=== PATIENT | male | born 1995 | race Caucasian/White ===

== ENCOUNTER 2017-01-23 17:40 | Emergency (ER) | payer BC ==
[~2017-01-23 17:40] MED LIST: DICL75 PO; TYLE3 PO
[2017-01-23] MEDS ORDERED: IOHEXOL 350 MG/ML 10 ML VIAL (for RAD DIAG) IVCONTRAST ONE (17:41)
[2017-01-23 17:53] VITALS: BP 128/64; PULSE 60; RESP 22; TEMP 98; O2SAT 100
[2017-01-23] MEDS ORDERED: LACTATED RINGER'S 1000 ML INJ 1,000 ML IV SCH (17:54)
[2017-01-23 17:58] VITALS: O2SAT 98
[2017-01-23] MEDS ORDERED: SODIUM CHLORIDE 0.9% FLUSH 10 ML FLUSH IVF PRN (18:00)
[2017-01-23] MEDS ORDERED: MORPHINE SULFATE 4 MG/ML INJ IV PUSH ONE ×3 (18:00→19:45)
[2017-01-23] MEDS ORDERED: ONDANSETRON HCL 4 MG/2 ML VIAL IV PUSH ONE (18:00)
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
[2017-01-23 18:30] VITALS: BP 98/54; PULSE 72; RESP 20; O2SAT 100
[2017-01-23 18:30] LABS: AUTOMATED NEUTROPHIL # 3.3 TH/MM3 (1.8-7.7); BASOPHIL # 0.2 TH/MM3 (0-0.2); BASOPHIL % 2.6 % (0.0-2.0); EOSINOPHIL # 0.1 TH/MM3 (0-0.4); EOSINOPHIL % 1.6 % (0.0-4.0); HEMATOCRIT 43.5 % (39.0-51.0); HEMO FLAGS DIFF FINAL; LYMPH % 50.7 % (9.0-44.0); LYMPHOCYTE # 4.6 TH/MM3 (1.0-4.8); MEAN CELL VOLUME 85.3 FL (80.0-100.0); MEAN CORPUSCULAR HEMOGLOBIN 28.8 PG (27.0-34.0); MEAN CORPUSCULAR HGB CONC 33.7 % (32.0-36.0); MONO % 7.7 % (0.0-8.0); NEUT % 37.4 % (16.0-70.0); PLATELET COUNT 208 TH/MM3 (150-450); RED CELL DISTRIBUTION WIDTH 12.9 % (11.6-17.2); WHITE BLOOD COUNT 8.9 TH/MM3 (4.0-11.0)
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
[2017-01-23 18:40] LABS: BICARBONATE 26.4 MEQ/L (21.0-32.0)
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
[2017-01-23 19:08] VITALS: BP 126/59; PULSE 95; RESP 16; O2SAT 99
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
[2017-01-23] MEDS ORDERED: HYDR-3533 PO (19:38)
[2017-01-23] MEDS ORDERED: POTASSIUM CHLORIDE 20 MEQ CONTROLLED RELEASE TAB PO ONE (19:45)
[2017-01-23 20:02] VITALS: BP 139/77
== END 2017-01-23 20:03 | disposition home or self-care (01) ==
LOC: PHED 17:40
DX: S42.021A Displaced fracture of shaft of right clavicle, initial encounter for closed fracture (principal); M54.2 Cervicalgia; V86.09XA Driver of other special all-terrain or other off-road motor vehicle injured in traffic accident, initial encounter
CPT/HCPCS: 29240; 70450; 71260; 72125; 73030; 74177; 80048; 85025; 96361; 96374; 96375; 96376; 99285; J2270; J2405; J7120; Q9967

== ENCOUNTER 2017-01-26 16:47 | Emergency (ER) | payer BC ==
[~2017-01-26] VITALS: Ht 177.8 cm; Wt 61.5 kg
[~2017-01-26 16:47] MED LIST changes: -DICL75 PO; +HYDR-3533 PO; -TYLE3 PO
[2017-01-26 16:48] VITALS: BP 141/79; PULSE 80; RESP 16; TEMP 98.3; O2SAT 98
[2017-01-26] MEDS ORDERED: IBUP800T23 PO (17:26)
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
== END 2017-01-26 17:51 | disposition home or self-care (01) ==
LOC: NEPK 16:47
DX: S42.021A Displaced fracture of shaft of right clavicle, initial encounter for closed fracture (principal); X58.XXXA Exposure to other specified factors, initial encounter
CPT/HCPCS: 99283